=== PATIENT | female | born 1985 ===

== ENCOUNTER → 2017-09-11 | Outpatient (CLI) | payer OTHER | LOC: FIMAGING 14:09 | PROVIDERS: ATTEND Advanced Practice Midwife | DX: O36.5120 Maternal care for known or suspected placental insufficiency, second trimester, not applicable or unspecified (principal); Z3A.19 19 weeks gestation of pregnancy ==

== ENCOUNTER → 2017-11-26 | Outpatient (CLI) | payer OTHER | LOC: FIMAGING 12:55 | PROVIDERS: ATTEND Advanced Practice Midwife | DX: O43.123 Velamentous insertion of umbilical cord, third trimester (principal); Z3A.30 30 weeks gestation of pregnancy ==

== ENCOUNTER → 2017-12-17 | Outpatient (CLI) | payer OTHER | LOC: FIMAGING 13:27 | PROVIDERS: ATTEND Advanced Practice Midwife | DX: O36.5930 Maternal care for other known or suspected poor fetal growth, third trimester, not applicable or unspecified (principal); Z3A.33 33 weeks gestation of pregnancy ==